=== PATIENT | female | born 1980 | race Caucasian/White ===

== ENCOUNTER 2020-11-07 09:50 | Emergency (ER) | payer SELFPAY ==
[~2020-11-07] VITALS: Ht 154.9 cm; Wt 90.7 kg
== END 2020-11-07 10:30 | disposition home or self-care (01) ==
LOC: ER 10:00
DX: J40 Bronchitis, not specified as acute or chronic (principal); R05 Cough; F13.239 Sedative, hypnotic or anxiolytic dependence with withdrawal, unspecified; I10 Essential (primary) hypertension; F43.10 Post-traumatic stress disorder, unspecified; M79.7 Fibromyalgia; F41.9 Anxiety disorder, unspecified
CPT/HCPCS: 99283